=== PATIENT | male | born 1950 | race Caucasian/White ===

== ENCOUNTER → 2017-10-17 | Outpatient (CLI) | payer MEDICARE, OTHER | END | disposition home or self-care (01) | LOC: ECHO 08:54 | DX: R94.31 Abnormal electrocardiogram [ECG] [EKG] (principal) | CPT/HCPCS: 93306 ==

== ENCOUNTER → 2020-01-19 | Outpatient (CLI) | payer MEDICARE, OTHER ==
[~2020-01-19] MED LIST: ALFU10TA PO; ASPI-482 PO; ATOR20TA58 PO; LEVO88TA70 PO
== END | disposition home or self-care (01) ==
LOC: LAB 14:18
PROVIDERS: ATTEND Internal Medicine Gastroenterology
DX: Z11.59 Encounter for screening for other viral diseases (principal); Z80.0 Family history of malignant neoplasm of digestive organs
CPT/HCPCS: U0003-CS

== ENCOUNTER → 2020-01-23 | Day surgery (SDC) | payer MEDICARE, OTHER ==
[~2020-01-23] MED LIST changes: +IV RINGERS,LACTATED 1000ML 1,000 ML IV ONE; +LIDOCAINE 2% PF 5 ML VIAL. ONE; +PROPOFOL 10 MG/ML (20ML) VIAL. IV ONE
--- NOTE | 2020-01-23 09:53 | CONS ---
DATE OF CONSULTATION: 01/23/2020 REASON FOR CONSULTATION: Colorectal screening. HISTORY OF PRESENT ILLNESS: A 69-year-old male with past medical history significant for hypothyroidism, hyperlipidemia, is seen for family history of colon cancer. Colonoscopy in 2015 was unrevealing except for hemorrhoids. Bowel habits have been regular with intermittent stooling, does have some occasional blood with wiping. Weight and appetite are stable. He is otherwise without additional complaints. PAST MEDICAL HISTORY: Hypothyroidism and hyperlipidemia. ALLERGIES: None. MEDICATIONS: Uroxatral, aspirin, atorvastatin, levothyroxine. FAMILY HISTORY: Significant for colon cancer with mother, diabetes with his father, [place] with his father. PAST SURGICAL HISTORY: Appendectomy. REVIEW OF SYSTEMS: Per records. PHYSICAL EXAMINATION: GENERAL: Reveals a well-nourished, well-developed male who is alert, cooperative, in no acute distress. VITAL SIGNS: Temperature 97.8, pulse 84, respirations 20. LUNGS: Clear. CARDIOVASCULAR: Reveals an S1, S2 without S3, S4 or appreciable murmur. ABDOMEN: Soft abdomen, normal bowel sounds, without appreciable hepatosplenomegaly. IMPRESSION: Family history of colon cancer. Surveillance exam is recommended at this time. Risks and benefits of procedure were discussed with the patient previously, is willing to proceed. TIANA WEBBER MD DR: SULY/ayanna JOB#: [id number] / [id number]
[2020-01-23 10:00] VITALS: BP 145/80
== END | disposition home or self-care (01) ==
LOC: SURG 07:49
PROVIDERS: ATTEND Internal Medicine Gastroenterology
DX: Z12.11 Encounter for screening for malignant neoplasm of colon (principal); K57.30 Diverticulosis of large intestine without perforation or abscess without bleeding; K64.0 First degree hemorrhoids; E03.9 Hypothyroidism, unspecified; E78.5 Hyperlipidemia, unspecified; Z98.890 Other specified postprocedural states; Z80.0 Family history of malignant neoplasm of digestive organs
CPT/HCPCS: G0105; J2704; 45378